=== PATIENT | female | born 1965 | race Caucasian/White ===

== ENCOUNTER 2024-08-31 20:04 | Emergency (ER) | payer MEDICAID, SELFPAY ==
--- NOTE | 2024-08-31 20:21 | XR_ITS ---
Examination: Knee, right , 3 views Technique: Knee AP, lateral, oblique 3 views Date and time of exam: August 31, 20242025 hrs. Indications: Patient fell today with injury to the knee, knee pain. Findings: Acute fracture lateral tibial plateau, significant depression of the lateral tibial plateau Significant osteopenia Extensive blood in the joint space Impression: Acute fracture proximal tibia with significant depression lateral tibial plateau
[2024-08-31 20:50] VITALS: BP 145/83; PULSE 78; RESP 18; TEMP 36.8; O2SAT 97; BMI 26.6
--- NOTE | 2024-08-31 21:06 | XR_ITS ---
Examination: CT right knee, without contrast. 2-D sagittal reconstructions. 2-D coronal reconstructions. 3-D reconstructions. Date and time of exam:August 23, 2024 2122 hrs. Indications: Patient fell today with injury to the knee, knee pain CTDI: vol (mGy):9.03 DLP: (mGycm):248 Technique: Multiple 1.25 mm axial sections of the right knee without intravenous contrast have been obtained. 2-D sagittal and coronal reconstructions have been obtained. 3-D reconstructions have been obtained. Low dose protocols were performed. One or more of the following dose reduction techniques were used; automated exposure control, adjustment of the mA and/or KV according to patient size, use of iterative reconstruction technique. Findings: Acute fracture proximal tibia with marked depression of the lateral tibial plateau, at least 8 mm Fracture extends to the lateral intercondylar spine Fibula intact Distal femur femoral condyles intact as well as patella Extensive blood in the joint space Impression: Acute comminuted fracture proximal tibia with marked depression of the lateral tibial plateau
--- NOTE | 2024-08-31 21:15 | PD.EDLOWEX ---
Lower Extremity Injury RME/HPI General Chief Complaint: Fall Stated Complaint: FALL WITH INJURY TO RIGHT KNEE Time Seen by Provider: 08/31/24 20:58 Arrival date/time: 08/31/24 20:04 58F with no significant PMH presents to ED with L knee pain after she fell at the gym. Patient denies hitting her head. Limitations: no limitations Related Data Previous Rx's ?Medication ?Instructions ?Recorded hydrocodone 5 mg-acetaminophen 325 1 tab PO BID PRN pain #10 tabs 08/31/24 mg tablet Allergies Allergy/AdvReac Type Severity Reaction Status Date / Time aspirin Allergy Verified 08/31/24 20:11 cephalexin Allergy Verified 08/31/24 20:11 Penicillins Allergy Verified 08/31/24 20:11 Review of Systems Review of Systems Systems Reviewed: All systems reviewed, normal except as documented Constitutional Constitutional: Reports system reviewed and no additional complaints, except as documented, Denies fever(s) and Denies headache(s) ENT Ears, Nose, Mouth, and Throat: Denies disequilibrium and Denies headache(s) Cardiovascular Cardiovascular: Reports system reviewed and no additional complaints, except as documented, Denies chest pain and Denies dyspnea Respiratory Respiratory: Reports system reviewed and no additional complaints, except as documented, Denies cough and Denies dyspnea Gastrointestinal Gastrointestinal: Reports system reviewed and no additional complaints, except as documented, Denies abdominal pain, Denies nausea and Denies vomiting Musculoskeletal Musculoskeletal: Reports as per HPI, Reports arthralgias and Reports joint swelling Neurologic Neurologic: Reports system reviewed and no additional complaints, except as documented, Denies confusion, Denies disequilibrium and Denies headache(s) Psychiatric Psychiatric: Denies confusion Past Medical History Social History SMOKING STATUS: Never smoker ED Exam General Limitations: Present no limitations General appearance: Present alert and in no apparent distress Head Head exam: Present atraumatic Eye Eye exam: Present normal appearance, PERRL and EOMI ENT ENT exam: Present normal exam, normal oropharynx and mucous membranes moist Neck Neck exam: Present normal inspection, full ROM and trachea midline Chest Chest inspection: Present normal inspection and symmetric chest wall rise Respiratory Respiratory exam: Present normal lung sounds bilaterally Cardiovascular Cardiovascular exam: Present regular rate, normal rhythm and normal heart sounds Abdominal Exam Abdominal exam: Present soft and normal bowel sounds Expanded Lower Extremity Exam Knee exam: Present tenderness (R) and swelling Back Exam Back exam: Present normal inspection and full ROM Neurological Exam Neurological exam: Present alert, oriented X3 and CN II-XII intact Psychiatric Psychiatric exam: Present normal affect and normal mood Skin Skin exam: Present warm, dry, intact and normal color Course Quality Measures none Orders Category Date Time Status Apply knee immobilizer NOW Care 08/31/24 22:21 Active Crutches .NOW Care 08/31/24 22:[address] knee RT wo con Stat Exams 08/31/24 21:06 Completed XR knee RT 3V Stat Exams 08/31/24 20:21 Completed CBC Stat Lab 08/31/24 21:17 Completed CMP [Comprehensive Metabolic Panel] Stat Lab 08/31/24 21:17 Completed INR [Prothrombin Time with INR] Stat Lab 08/31/24 21:17 Completed Lactate (Lactic Acid) Stat Lab 08/31/24 21:17 Completed PTT [Partial Thromboplastin Time] Stat Lab 08/31/24 21:17 Completed HYDROcodone*/APAP 5/325 [[place] 5/325] Med 08/31/24 22:35 Discontinued 1 tab PO X1 ONE Vital Signs Vital signs: Vital Signs Temperature 98.2 F 08/31/24 20:50 Pulse Rate 78 08/31/24 20:50 Respiratory Rate 18 08/31/24 20:50 Blood Pressure 145/83 H 08/31/24 20:50 Pulse Oximetry (%) 97 08/31/24 20:50 Oxygen Delivery Method Room Air 08/31/24 20:50 O2 at 97% on RA and WNLs Extremity Injury, Lower MDM Narrative MDM Narrative:: 58F with no significant PMH presents to ED with L knee pain after she fell at the gym. Patient denies hitting her head. Physical exam reveals R knee swelling and tenderness with reduced ROM. Possibly numbness in toes, but ROM currently intact. Distal pulses present. Patient cannot bear weight. Patient is afebrile, calm, and alert. XR and CT reveals proximal tibia fx with 8 mm depression of lateral plate. Labs unremarkable including normal lactate. Spoke to Dr. Simon, ortho at [facility], who states no emergent transfer needed given depression <1 cm. He will see patient on Tuesday for outpatient surgery. Meds, knee immobilizer, dianetic counselor, and crutches given. Patient data External records reviewed:: [facility] previous records Clinical information provided by:: patient Social determinants that could affect healthcare access:: none Patient has the following chronic illnesses:: none How is presenting disease/condition affected by chronic disease/condition?: no chronic disease Evaluation data The following diagnostics were reviewed and interpreted by me:: lab results and radiology exam(s) Lab and/or radiology exams considered but not ordered:: ordered Interpretation Summary: above Medications / Prescriptions Medications or Prescriptions considered but not ordered:: ordered Medication administrations:: Medication Administration History Discontinued Medications Hydrocodone Bitart/Acetaminophen (Hydrocodone/Apap 5/325 Tablet) 1 tab PO X1 ONE Stop: 08/31/24 22:36 above Consultations Consultation(s) initiated? (list below): Yes Diagnosis Extremity Injury, Lower Differential Diagnosis: ankle sprain and strain, acute internal derangement of knee, fracture of femur, fracture of hip and other (knee fx) Most likely diagnosis given after review of the tests above:: knee fx Admission Indicated Admission indicated?: not indicated Explain why admission is indicated or not indicated:: outpatient Admission Request Was there a request for admission?: No Disposition Plan Disposition Plan: Discharge Discharge Attestation Discharge Attestation: The patient and all family members were given an opportunity to ask questions and understood the discharge instructions. Discharge instructions specifically effects, indications for sooner follow up or return to the emergency department, and the expected course of current diagnosis. Patient condition: Stable Discharge Plan Plan Patient Disposition: HOME (Self Care) Disposition Comment: Stable Prescriptions/Referrals Prescriptions/Med Rec: New hydrocodone-acetaminophen 5-325 mg tablet 1 tab PO BID MDD 2 PRN (Reason: pain) Qty: 10 0RF Referrals: No Primary/Family,Physician [Primary Care Provider] - In 1 week Problem List Clinical Impression: Closed fracture of knee region Patient/Caregiver Discharge Instructions Education Materials: ED Fracture, Knee Additional Instructions: Please follow-up with PCP within 24-48 hours and return immediately if symptoms worsen. Dr. Simon, ortho surgeon at [facility], will see you next week. If worsening numbness/pain in lower leg, go to [facility] ED directly. Print Language: Khmer Stand Alone Forms: Patient Portal Info Letter PA/TIMBER SIZER Supervising Physician PA/TIMBER SIZER Supervising Physician: Dr. Mazariegos
[2024-08-31 21:34] LABS: Basophils % (Auto) 0 % (0-2.5); Eosinophils # (Auto) 0.1 Thou/mm3 (0.0-0.5); Eosinophils % (Auto) 1 % (0-10); Hematocrit 38.8 % (36.0-46.0); Hemoglobin 13.3 g/dL (12.0-16.0); Immature Granulocytes % (Auto) 0 % (0-0); Immature Granulocytes Auto 0.02 Thou/mm3 (0.00-0.00); Lymphocytes # (Auto) 0.9 Thou/mm3 (1.0-4.8); Lymphocytes % (Auto) 10 % (10-50); Mean Corpuscular HGB Conc 34.3 g/dl (31.0-37.0); Mean Corpuscular Hemoglobin 28.9 pg (25.0-35.0); Mean Corpuscular Volume 84 fL (80-100); Monocytes # (Auto) 0.6 Thou/mm3 (0.0-0.8); Monocytes % (Auto) 7 % (0-12); Neutrophils # (Auto) 7.4 Thou/mm3 (1.8-7.7); Neutrophils % (Auto) 82 % (37-80); Nucleated Red Blood Cell % 0 /100 WBC (0); Platelet Count 229 Thou/mm3 (140-440); RDW Standard Deviation 39.7 fL (36.4-46.3); White Blood Count 9.1 Thou/mm3 (3.6-11.0)
[2024-08-31 21:45] LABS: Alanine Aminotransferase 23 U/L (10-49); Albumin, Serum 4.7 gm/dL (3.5-5.0); Alkaline Phosphatase 77 U/L (46-116); Anion Gap 8 (7-16); Aspartate Amino Transferase 22 U/L (0-34); BUN/Creatinine Ratio 24 Ratio (12-20); Bilirubin,Total 0.5 mg/dL (0.3-1.2); Blood Urea Nitrogen 19 mg/dL (9-23); Calcium 9.6 mg/dL (8.3-10.6); Calcium (Corrected) 9.6 mg/dL (8.5-10.1); Carbon Dioxide 27.9 mMol/L (20.0-31.0); Chloride 100 mMol/L (98-107); Creatinine (Component) 0.8 mg/dL (0.6-1.3); Estimated Creatinine Clearance 75.6 mL/min (>60); Globulin 2.4 gm/dL (2.3-3.5); Glucose 108 mg/dL (74-106); Osmolality,Calculated 275 (275-295); Potassium 3.8 mMol/L (3.4-5.1); Sodium 136 mMol/L (136-145); Total Protein 7.1 gm/dL (5.7-8.2); eGFR > 60 See Note
[2024-08-31 21:47] LABS: Partial Thromboplastin Time 24.9 Seconds (22.0-36.0); Prothrombin Time 10.9 Seconds (9.0-12.2)
--- NOTE | 2024-08-31 22:05 | PC.NURSE ---
[facility] FAXED PAPERWORK FOR POSSIBLE ORTHO TRANSFER, SPOKE WITH [place]
[2024-08-31 22:10] VITALS: BP 152/78; PULSE 88; RESP 18; O2SAT 96
--- NOTE | 2024-08-31 22:22 | PC.NURSE ---
BRANDO LOVELACE AT [facility] TO FOLLOW UP WITH DR LOWRY ON Tuesday S [address] [place] [facility] 220
[2024-08-31] MEDS: HYDROcodone/APAP 5/325 TABLET 1 TAB PO (22:39)
[2024-08-31 22:41] VITALS: BP 152/78; PULSE 86; RESP 19; O2SAT 95
== END 2024-08-31 22:51 | disposition home or self-care (01) ==
PROVIDERS: Physician Assistant; Emergency Provider Emergency Medicine
DX: S82.101A Unspecified fracture of upper end of right tibia, initial encounter for closed fracture (principal); W19.XXXA Unspecified fall, initial encounter; Y93.89 Activity, other specified; Y92.39 Other specified sports and athletic area as the place of occurrence of the external cause
CPT/HCPCS: 36415; 73562; 73700; 80053; 83605; 85025; 85610; 85730; 99284; A9270

== ENCOUNTER 2024-11-22 13:34 | Outpatient (AMB) | payer MEDICAID, SELFPAY ==
[2024-11-22 13:54] VITALS: BP 159/84; PULSE 87; RESP 17; TEMP 36.9; O2SAT 97; BMI 27.8
--- NOTE | 2024-11-22 13:54 | ORTHONT_ITS ---
Vital signs 11/22/24 13:54 Height 1.65 m Height Method Stated Weight 75.75 kg Weight Measurement Method Standing Scale BMI 27.8 BP 159/84 H Blood Pressure Source Automatic Cuff Blood Pressure Location Right Upper Arm Position Sitting Respiration 17 Pulse 87 Pulse Source Monitor Temp 98.4 F Temp Source Temporal Artery Scan Pulse Oximetry (%) 97 Oxygen Delivery Method Room Air Med/Allergies Allergies & Medications Allergies aspirin Allergy (Verified 11/22/24 13:56) cephalexin Allergy (Verified 11/22/24 13:56) Penicillins Allergy (Verified 11/22/24 13:56) Medication Reconciliation hydrocodone 5 mg-acetaminophen 325 mg tablet 1 tab PO BID PRN pain #10 tabs 08/31/24 [Rx Confirmed 11/22/24] Exam Exam Patient is in no acute distress and is cooperative with the examination today. Breathing is nonlabored. Patient has a normal mood and affect. The patient has a gait that is nonantalgic Bilateral extremities were evaluated and demonstrates sensation intact to light touch. Palpable pedal pulses are present. No significant edema is present. Bilateral hips were examined. The patient has no pain with log roll of the hips. Internal rotation to 30 degrees and external rotation to 30 degrees is painless. Negative FADIR. Left knee was examined today. The left knee is in reasonable alignment. Range of motion from 0-120 degrees. Knee is stable to varus and valgus as well as AP translation with <5mm. Patient has a negative McMurrays. There is no pain with patellofemoral compression and no crepitus noted. The knee is nontender to palpation. The right knee was also examined. The right knee is in neutral alignment. Range of motion from 0-120 degrees. Knee is stable to varus and valgus as well as AP translation with <5mm. Patient has a negative McMurrays. There is no pain with patellofemoral compression and no crepitus noted. The knee is nontender to palpation diffusely. X-rays in the CT were personally reviewed by me. This is dated 08/31/2024 which is the injury films from 3 months ago. This demonstrates a posterior lateral tibial plateau fracture with depression and comminution Assessment and Plan Problem List (1) Tibial plateau fracture: Status: Acute Plan: Patient is a pleasant 58-year-old female with a 3-month old tibial plateau fracture that occurred after a direct impact injury. The fracture is likely already healed at this time. I would like to get x-rays. Unfortunately, she did not get surgery and there is significant depression of the lateral tibial plateau and it likely has healed according to the prior traumatologist. We discussed that we would probably try nonoperative treatment first. If she is does not do well we could possibly offer total knee replacement. She has only started bearing weight on it recently Office Procedures GNS Level of Care Nursing/Assessment Patient Status: Initial/New Patient Nursing Assessment/Reassesment: Medication Reconciliation and Update PMH in EMR Coordination of Care: Complex Care and Chronic Disease 1-5, Consent,records obtained, informed consent, Education Simp Pt/Fam, 1 Ins Authorization, Lab and Imaging orders and Results/Orders obtained New Patient Charge New Patient Point Assignment: [id number] New Patient Point Charge: PIPE INSTALLER Level 3 ([id number]) MA Intake Visit Data Collection New Patient or Established: Established Patient (seen at [facility] within 3 years) Reason for Visit:: RT TIBIA FRACTURE Seen by Clinical Staff ONLY (RN/MA): No Manager Data Warehousing Required: No PCP or OBGYN visit in last 3 months: Yes Hx Now: No Do You Feel Safe at Home: Yes Authorities Contacted: N/A Questionairres Past Medical History Past Medical History Have you ever been diagnosed with any of the following: Cardiology Problems Congestive Heart Failure: No Respiratory Problems Chronic Obstructive Pulmonary Disease (COPD): No Genital/Urinary Problems Renal Disease: No Reproductive Problems Pelvic Inflammatory Disease: No Musculoskeletal Problems Carpal Tunnel Syndrome: Yes Endocrine Problems Diabetes Mellitus Type 1: No Diabetes Mellitus Type 2: No Subjective Visit Visit for: new patient Immunization / Flu Flu Vaccine in the Last 12 Months: No Flu Vaccine Exclusion Criteria: Refused by Patient History of Present Illness Chief complaint: Right knee pain Idalia is a pleasant 58-year-old female with right knee pain in the right tibial plateau fracture that occurred 3 months ago. She saw prior traumatologist by the time she was able to see 1 if the fracture is already healed. We discussed with her total knee replacement is a reasonable option. She has not tried conservative treatment at all at this point. I would want to see how she does with physical therapy especially since she has started bearing weight recently Pain Pain level (0-10): 0 Ambulatory data Ambulatory device: other (specify) (1 CRUTCH) Treatments Number of previous injections: 0 Number of Physical Therapy sessions: 0 Improvement with NSAIDS: n/a Review of Systems Review of Systems: All systems negative unless otherwise noted in HPI.
--- NOTE | 2024-11-22 14:07 | XR_ITS ---
Examination: Right knee 4 views TECHNIQUE: AP oblique lateral axial right knee 4 views Date and time: November 22, 2024 at 1421 hours Comparison August 31, 2024 INDICATIONS: History fracture proximal tibia August 23, 2024 FINDINGS: Severe osteopenia Stable fracture with significant depression lateral tibial plateau No new fractures IMPRESSION: Stable fracture proximal tibia with significant depression lateral tibial plateau
== END 2024-11-22 14:11 | disposition home or self-care (01) ==
LOC: HODSRG 13:34
PROVIDERS: Supervising Provider Orthopaedic Surgery Adult Reconstructive Orthopaedic Surgery; Visit Provider Orthopaedic Surgery Adult Reconstructive Orthopaedic Surgery
DX: S82.141D Displaced bicondylar fracture of right tibia, subsequent encounter for closed fracture with routine healing (principal); X58.XXXD Exposure to other specified factors, subsequent encounter
CPT/HCPCS: 73564; 99203; G0463

== ENCOUNTER 2025-01-08 14:24 | Outpatient (AMB) | payer MEDICAID, SELFPAY ==
--- NOTE | 2025-01-08 14:44 | PD.ORTHCLVIS ---
Vital signs 01/08/25 14:50 Height 1.65 m Height Method Stated Weight 76.317 kg Weight Measurement Method Standing Scale BMI 28.0 BP 124/79 Blood Pressure Source Automatic Cuff Blood Pressure Location Right Upper Arm Position Sitting Respiration 16 Pulse 72 Pulse Source Monitor Temp 97.7 F Temp Source Temporal Artery Scan Pulse Oximetry (%) 94 L Oxygen Delivery Method Room Air Med/Allergies Allergies & Medications Allergies aspirin Allergy (Verified 01/08/25 14:51) cephalexin Allergy (Verified 01/08/25 14:51) Penicillins Allergy (Verified 01/08/25 14:51) Exam Exam Patient is in no acute distress and is cooperative with the examination today. Breathing is nonlabored. Patient has a normal mood and affect. The patient has a gait that is nonantalgic Bilateral extremities were evaluated and demonstrates sensation intact to light touch. Palpable pedal pulses are present. No significant edema is present. Bilateral hips were examined. The patient has no pain with log roll of the hips. Internal rotation to 30 degrees and external rotation to 30 degrees is painless. Negative FADIR. Left knee was examined today. The left knee is in reasonable alignment. Range of motion from 0-120 degrees. Knee is stable to varus and valgus as well as AP translation with <5mm. Patient has a negative McMurrays. There is no pain with patellofemoral compression and no crepitus noted. The knee is nontender to palpation. The right knee was also examined. The right knee is in neutral alignment. Range of motion from 0-120 degrees. Knee is stable to varus and valgus as well as AP translation with <5mm. Patient has a negative McMurrays. There is no pain with patellofemoral compression and no crepitus noted. The knee is nontender to palpation diffusely. X-rays in the CT were personally reviewed by me. This is dated 08/31/2024 which is the injury films from 3 months ago. This demonstrates a posterior lateral tibial plateau fracture with depression and comminution New x-rays demonstrate a depressed tibial plateau fracture site that appears to be well-healed at this time Assessment and Plan Problem List (1) Tibial plateau fracture: Status: Acute Plan: Patient is a pleasant 58-year-old female with a 3-month old tibial plateau fracture that occurred after a direct impact injury. The fracture has already healed at this time. She is doing well. She would like to continue with physical therapy Office Procedures GNS Level of Care Nursing/Assessment Patient Status: Established Patient Nursing Assessment/Reassesment: Medication Reconciliation, Update PMH in EMR and Vital Signs Coordination of Care: Complex Care and Chronic Disease 1-5, Education Complex Pt/Fam, Consent,records obtained, informed consent, Results/Orders obtained and Staff clarify orders Established Patient Charge Established Patient Point Assignment: 95 Established Patient Point Charge: EP Level 3 (80-115) MA Intake Visit Data Collection New Patient or Established: Established Patient (seen at [facility] within 3 years) Reason for Visit:: F/U XRAY RESULTS Seen by Clinical Staff ONLY (RN/MA): No Flask Maker Required: No PCP or OBGYN visit in last 3 months: Yes Hx Now: No Do You Feel Safe at Home: Yes Authorities Contacted: N/A Questionairres Past Medical History Past Medical History Have you ever been diagnosed with any of the following: Neurological Problems Cerebrovascular Accident (CVA): No Transient Ischemic Attacks (TIA): No Dementia: No Alzheimer's Disease: No Parkinson's Disease: No Brain Tumor: No Meningitis: No Seizures: No Epilepsy: No Multiple Sclerosis: No Cerebral Palsy: No Amyotrophic Lateral Sclerosis (ALS/Jayla Gehrig's): No Guillain-[place] Syndrome: No Spina Bifida: No Paralysis: No Peripheral Neuropathy: No Aguirre's Palsy: No Subdural Hematoma: No Migraine: No Head Trauma: No Spinal Cord Injury: No Traumatic Brain Injury: No Cardiology Problems Myocardial Infarction: No Cardiac Arrhythmia: No Atrial Fibrillation: No Angina: No Heart Murmur: No Coronary Artery Disease: No Atherosclerotic Heart Disease: No Peripheral Vascular Disease: No Hypercholesterolemia: No Aneurysm: No Congestive Heart Failure: No Congenital Heart Disease: No Valvular Heart Disease: No Rheumatic Fever: No Cardiomyopathy: No Edema: No Pericarditis: No Cellulitis: No Deep Vein Thrombosis: No Hypertension: No Hypotension: No Varicose Veins: No Respiratory Problems Chronic Obstructive Pulmonary Disease (COPD): No Asthma: No Bronchitis: No Emphysema: No Pneumonia: No Pulmonary Fibrosis: No Tuberculosis: No Pulmonary Embolism: No Pulmonary Edema: No Sleep Apnea: No CPAP Dependent: No Respiratory Aspiration: No Dyspnea: No Orthopnea: No Hx Cough: No Cough: No Wheezing: No Chest Deformities: No Smoking: No Smoking Cessation Counseling: No Smoking Exposure: No Tobacco Use: No Clubbing: No Exposure to Respiratory Irritants: No Intubation: No Stomache/Intestinal Problems Liver Cancer: No Hepatitis: No Cirrhosis: No Pancreatic Cancer: No Pancreatitis: No Celiac Disease: No Gall Bladder Disease: No Gastrointestinal Bleed: No Esophageal Varices: No Fitzpatrick's Esophagus: No Colitis: No Ulcerative Colitis: No Diverticulitis: No Diverticulosis: No Ulcer: No Colorectal Cancer: No Irritable Bowel: No Crohn's Disease: No Obstructive Bowel: No Hiatal Hernia: No Hemorrhoids: No Gastroesophageal Reflux Disease: No Polyps: No Obesity: No Genital/Urinary Problems Chronic Kidney Disease: No Renal Disease: No Kidney Stones: No Polycystic Kidney Disease: No Neurogenic Bladder: No Inguinal Hernia: No Dialysis: No Reproductive Problems Breast Cancer: No Endometriosis: No Fibroids: No Genital Herpes: No Gonorrhea: No Pelvic Inflammatory Disease: No Polycystic Ovarian Syndrome: No Previous Pregnancies: No Syphilis: No Uterine Prolapse: No Musculoskeletal Problems Muscular Dystrophy: No Myasthenia Gravis: No Marfan's Syndrome: No Bone Cancer: No Arthritis: No Rheumatoid Arthritis: No Osteoporosis: No Degenerative Disk Disease: No Gout: No Scoliosis: No Carpal Tunnel Syndrome: Yes Fibromyalgia: No Fractures: No Degenerative Joint Disease: No Osteomyelitis: No Poliovirus: No Head,Eye,Nose,Throat Problems Cataracts: No Glaucoma: No Blind: No Retinal Detachment: No Macular Degeneration: No Chronic Ear Infections: No Deafness: No Eye Prosthesis: No Endocrine Problems Diabetes Mellitus Type 1: No Diabetes Mellitus Type 2: No Hypoglycemia: No Carmencita's Syndrome: No [place]'s Disease: No Hyperthyroidism: No Hypothyroidism: No Thyroid Cancer: No Parathyroid Disease: No Pituitary Disease: No Systemic Lupus Erythematosus: No Syndrome of Inappropriate Antidiuretic Hormone: No Adrenal Disease: No Graves' Disease: No Blood Problems Anemia: No Leukemia: No Hemophilia: No Thalassemia: No Sickle Cell Disease: No Clotting Problems: No Psychologic Problems Schizophrenia: No Recreational Drug Use: No Bipolar Disorder: No Depression: No Anxiety: No Behavior Problems: No Self-Mutilation: No Attention Deficit Disorder: No Attention Deficit Hyperactivity Disorder: No Depression: No Post Traumatic Stress Disorder: No Eating Disorder: No Other Problems Hospitalization: No Autoimmune Disease: No Down Syndrome: No Autism: No Developmental Delay: No Cosmetic Surgery: No Shingles: No Falls: No Blood Transfusions: No Blood Transfusion Reaction: No Anesthesia Reactions: No Organ Transplant: No Chemotherapy: No Radiation Therapy: No Hyperbaric Therapy: No MRSA: No VRSA: No Vancomycin-Resistant Enterococci: No Human Immunodeficiency Virus (HIV): No Chicken Pox: No Measles: No Mumps: No Rubella ([place] Measles): No Pertussis: No Klebsiella Pneumoniae Carbapenemase Producing Bacteria: No Clostridium Difficile: No Hepatitis A: No Hepatitis B: No Hepatitis C: No Communicable Disease: No Cancer: No Cervical Cancer: No Lung Cancer: No Ovarian Cancer: No Surgical History Angioplasty: No Appendectomy: No Bariatric Surgery: No Breast Surgery: No Cancer Surgery: No Carotid Endarterectomy: No Cholecystectomy: No Colectomy: No Colostomy: No Coronary Artery Bypass Graft: No Valve Replacement: No Herniorrhaphy: No Total Hip Replacement: No Total Knee Replacement: No Hysterectomy: No Pacemaker: No Sinus Surgery: No Splenectomy: No TAHBSO-Total Abdominal Hysterectomy: No Thyroidectomy: No Ureter Stent: No Subjective Visit Visit for: follow up visit and x-rays Immunization / Flu Flu Vaccine in the Last 12 Months: No Flu Vaccine Exclusion Criteria: Refused by Patient and No Exclusion Criteria History of Present Illness Chief complaint: F/U XRAY RESULTS Idalia is a pleasant 58-year-old female with right knee pain in the right tibial plateau fracture that occurred 3 months ago. She saw prior traumatologist by the time she was able to see 1 if the fracture is already healed. We discussed with her total knee replacement is a reasonable option. She has not tried conservative treatment at all at this point. She would like to start physical therapy. She is walking without any assistive device at this point Pain Pain level (0-10): 1 Pain location: outside (lateral) and anterior Pain quality: sharp Pain timing: increases with activity Associated signs & symptoms: none Ambulatory data Ambulatory device: none Treatments Number of previous injections: 0 Improvement with previous injections: No Number of Physical Therapy sessions: 0 Improvement with PT: No Improvement with NSAIDS: n/a Review of Systems Review of Systems: All systems negative unless otherwise noted in HPI.
[2025-01-08 14:50] VITALS: BP 124/79; PULSE 72; RESP 16; TEMP 36.5; O2SAT 94; BMI 28.0
== END 2025-01-08 15:03 | disposition home or self-care (01) ==
LOC: HODSRG 14:24
PROVIDERS: Supervising Provider Orthopaedic Surgery Adult Reconstructive Orthopaedic Surgery; Visit Provider Orthopaedic Surgery Adult Reconstructive Orthopaedic Surgery
DX: S82.141D Displaced bicondylar fracture of right tibia, subsequent encounter for closed fracture with routine healing (principal); X58.XXXD Exposure to other specified factors, subsequent encounter
CPT/HCPCS: 99213; G0463

== ENCOUNTER 2025-03-01 13:30 | Outpatient (RCR) | payer MEDICAID, SELFPAY ==
--- NOTE | 2025-02-19 16:12 | PT.OIERPT ---
PT OP Initial Eval Patient Information Outpatient Physical Therapy Treatment Date: 02/19/25 Visit Reasons: Tibia fx Medical Diagnosis: Right Tibial Plateau Fracture Treatment Dx #1: Right Knee Pain Treatment Dx #2: Right Knee Weakness Start of Care: 02/19/25 Date of Onset: Aug 2024 Smoking Status Smoking Status: Never smoker Initial Assessment Subjective: Pt is a 59 y/o female reports of right tibial plateau fracture in Aug 2024 while working out at the gym. Pt was NWB for 3 months due to specialist's order. According to patient if her knee doesn't feel better she will be possibly pending a knee replacement. Pt has limitaiton with walking, standing, chores, balance, uneven surfaces, working out, and performing recreational activities. Pt's average knee pain is 5/10 and swells with all activities. Objective: Right Knee AROM: all motions are WFL with end range pain into flexion Right Knee MMTs: grossly 4-/5 Right Hip MMTs: grossly 3+/5 Active SLR: 80 deg SLS: 3 sec with femoral IR Assessment: Pt demonstrate right knee weakness with pain s/p fracture leading to difficulty with ADLs. Pt will benefit from physical therapy to increase mobility, strength, and work on stability. Short Term and Senior Care Goals 1) Decrease knee pain to 2/10 in 6 wks to be able to stand more than 30 mins 2) Increase right knee MMTs grossly 4/5 in 6 wks to be able to perform squatting activities 3) Increase right hip MMTs grossly to 4-/5 in 6 wks to be able to perform recreational activities 4) Increase SLS to 15 sec in 6 wks to be able to perform self care activities 5) Indep with HEP Treatment Plan 1) Manual Therapy 2) Therapeutic Activities 3) Therapeutic Exercises 4) Modalities (ice, heat) 5) Balance Training 6) Gait Training Frequency and Duration: 2 x wk for 6 wks Certification Dates: 02/19/25 to 05/22/25 Procedure Charges OP PT Eval Mod Complex 30 minutes: Yes
--- NOTE | 2025-02-22 13:59 | PT.ODAYNRPT ---
PT Outpatient Daily Note OP Daily Note Outpatient Physical Therapy Treatment Date: 02/22/25 Visit Reasons: Tibia fx Subjective: Pt still has pain with prolonged activities. Objective: Please see flow chart for list of ther ex performed Assessment: tolerate exercises with minimal pain Plan: Continue with PT Length of Time (minutes) of Treatment: 30 Minutes Procedure Charges Therapeutic Exercise 30 minutes: Yes
--- NOTE | 2025-02-27 14:35 | PT.ODAYNRPT ---
PT Outpatient Daily Note OP Daily Note Outpatient Physical Therapy Treatment Date: 02/27/25 Visit Reasons: Tibia fx Subjective: Pt reports R knee was sore after last session but feels like she had a good PT session. Objective: Please see flow sheet for ther ex list. Assessment: Added TG squat exercise, pt completed with minimal medial knee collapse but self corrects after a few reps. Plan: Continue with POC. Length of Time (minutes) of Treatment: 30 Minutes Procedure Charges Therapeutic Exercise 30 minutes: Yes
--- NOTE | 2025-03-01 14:32 | PT.ODAYNRPT ---
PT Outpatient Daily Note OP Daily Note Outpatient Physical Therapy Treatment Date: 03/01/25 Visit Reasons: Tibia fx Subjective: Pt reports knee is doing better. Objective: Please see flow sheet for ther ex list. Assessment: Progressing interventions withing pt tolerance and instructed updated HEP, pt agreed to perorm for home. (HEP SLR, standing hip abduction, standing HS curl and heel raises. Plan: Continue with pOC. Length of Time (minutes) of Treatment: 30 Minutes Procedure Charges Therapeutic Exercise 30 minutes: Yes
== END 2025-03-03 23:59 | disposition home or self-care (01) ==
LOC: CPTX 13:30
PROVIDERS: PCP Orthopaedic Surgery Adult Reconstructive Orthopaedic Surgery; Referring Provider Orthopaedic Surgery Adult Reconstructive Orthopaedic Surgery; Visit Provider Orthopaedic Surgery Adult Reconstructive Orthopaedic Surgery
DX: M25.561 Pain in right knee (principal); R53.1 Weakness; R26.2 Difficulty in walking, not elsewhere classified; R26.89 Other abnormalities of gait and mobility; S82.141D Displaced bicondylar fracture of right tibia, subsequent encounter for closed fracture with routine healing; X58.XXXD Exposure to other specified factors, subsequent encounter
CPT/HCPCS: 97110; 97162

== ENCOUNTER 2025-03-29 13:30 | Outpatient (RCR) | payer MEDICAID, SELFPAY ==
--- NOTE | 2025-03-20 15:00 | PT.ODAYNRPT ---
PT Outpatient Daily Note OP Daily Note Outpatient Physical Therapy Treatment Date: 03/20/25 Visit Reasons: tibia fx Subjective: Pt's knee is much better. Pt has been able to bear more weight with walking. Pt still notice knee stiffness with prolonged sitting. Objective: Please see flow chart for list of ther ex perfomed Assessment: added ankle weight 1# to knee exercises with good tolerance. Pt demonstrate improved WB with gait Plan: Continue with PT Length of Time (minutes) of Treatment: 30 Minutes Procedure Charges Therapeutic Exercise 30 minutes: Yes
--- NOTE | 2025-03-22 15:31 | PT.ODAYNRPT ---
PT Outpatient Daily Note OP Daily Note Outpatient Physical Therapy Treatment Date: 03/22/25 Visit Reasons: tibia fx Subjective: Pt's knee was a little sore after last session. Pt still doesn't trust her knee completely with stairs Objective: Please see flow chart for list of ther ex performed Assessment: cues to decrease vaulting with 4 step up exercises and to initiate quad with step up motion. Added monster walk cues to keep toes forward to properly recruit glutes Plan: Continue with PT Length of Time (minutes) of Treatment: 30 Minutes Procedure Charges Therapeutic Exercise 30 minutes: Yes
--- NOTE | 2025-03-27 13:57 | PT.ODAYNRPT ---
PT Outpatient Daily Note OP Daily Note Outpatient Physical Therapy Treatment Date: 03/27/25 Visit Reasons: tibia fx Subjective: Pt was moving a lot of boxes over the weekend and felt sore shortly afterward. Today patient feels much better and knee is not as sore. Objective: Please see flow chart for list of ther ex performed Assessment: added RTB to monster and side step; patient had difficulty completing exercises due to glute fatigue. Pt was able to complete instructed reps with good form Plan: Continue with PT Length of Time (minutes) of Treatment: 30 Minutes Procedure Charges Therapeutic Exercise 30 minutes: Yes
--- NOTE | 2025-03-29 15:26 | PT.ODAYNRPT ---
PT Outpatient Daily Note OP Daily Note Outpatient Physical Therapy Treatment Date: 03/29/25 Visit Reasons: tibia fx Subjective: Pt's knee feels good. Pt does not have any concerns. Objective: Please see flow chart for list of ther ex performed Assessment: tolerate exercises with minimal pain Plan: Continue with PT Length of Time (minutes) of Treatment: 30 Minutes Procedure Charges Therapeutic Exercise 30 minutes: Yes
== END 2025-04-02 23:59 | disposition home or self-care (01) ==
LOC: CPTX 13:30
PROVIDERS: PCP Orthopaedic Surgery Adult Reconstructive Orthopaedic Surgery; Referring Provider Orthopaedic Surgery Adult Reconstructive Orthopaedic Surgery; Visit Provider Orthopaedic Surgery Adult Reconstructive Orthopaedic Surgery
DX: M25.561 Pain in right knee (principal); R53.1 Weakness; R26.2 Difficulty in walking, not elsewhere classified; R26.89 Other abnormalities of gait and mobility; S82.141D Displaced bicondylar fracture of right tibia, subsequent encounter for closed fracture with routine healing; X58.XXXD Exposure to other specified factors, subsequent encounter
CPT/HCPCS: 97110

== ENCOUNTER 2025-05-01 14:00 | Outpatient (RCR) | payer MEDICAID, SELFPAY ==
--- NOTE | 2025-04-12 14:40 | PT.ODAYNRPT ---
PT Outpatient Daily Note OP Daily Note Outpatient Physical Therapy Treatment Date: 04/12/25 Visit Reasons: TIBIA FRACTURE Subjective: Pt's knee is better. Pt mentioned she still has limitation with deep squat. Objective: Please see flow chart for list of ther ex performed Assessment: attempted wall squat, however, unable to complete due to knee pain and modified back to SL TG squat with better tolerance Plan: Continue with PT Length of Time (minutes) of Treatment: 30 Minutes Procedure Charges Therapeutic Exercise 30 minutes: Yes
--- NOTE | 2025-04-19 14:58 | PT.ODAYNRPT ---
PT Outpatient Daily Note OP Daily Note Outpatient Physical Therapy Treatment Date: 04/19/25 Visit Reasons: TIBIA FRACTURE Subjective: Pt reports [place] and had a hard time walking in the sand. Objective: Please see flow sheet for ther ex list. Assessment: Worked on squatting knee mechanics, pt demonstrates excessive medial knee collapse and favors L LE when squatting. Used mirror during squats for feedback decrease in medial knee collapse with squats using mirror. Plan: Continue with poC. Length of Time (minutes) of Treatment: 30 Minutes Procedure Charges Therapeutic Exercise 30 minutes: Yes
--- NOTE | 2025-05-01 14:19 | PT.ODAYNRPT ---
PT Outpatient Daily Note OP Daily Note Outpatient Physical Therapy Treatment Date: 05/01/25 Visit Reasons: TIBIA FRACTURE Subjective: No new complaints. Objective: Please see flow sheet for ther ex list. Assessment: Progressing interventions as tolerated. Plan: Pt has one visit left, assess for note. Length of Time (minutes) of Treatment: 30 Minutes Procedure Charges Therapeutic Exercise 30 minutes: Yes
--- NOTE | 2025-05-08 14:46 | PT.ODS1RPT ---
PT OP Progress/Discharge Note Date of Service: 05/08/25 Progress Note/DC Note Progress Note/Discharge Note: DC Note Patient Information Visit Reasons: TIBIA FRACTURE Service Discharge Date: 05/08/25 Status Assessment: Pt has been seen for 11 visits (eval + 10 visits). Pt last treated on 05/01/25. Pt came in 05/08/25 to cx all pending PT appt. Pt feels fine and will be bringing her client into therapy. Pt did not meet set goals in therapy; thank you for your referrals.
== END 2025-05-03 23:59 | disposition home or self-care (01) ==
LOC: CPTX 14:00
PROVIDERS: PCP Orthopaedic Surgery Adult Reconstructive Orthopaedic Surgery; Referring Provider Orthopaedic Surgery Adult Reconstructive Orthopaedic Surgery; Visit Provider Orthopaedic Surgery Adult Reconstructive Orthopaedic Surgery
DX: M25.561 Pain in right knee (principal); R53.1 Weakness; S82.141D Displaced bicondylar fracture of right tibia, subsequent encounter for closed fracture with routine healing; X58.XXXD Exposure to other specified factors, subsequent encounter
CPT/HCPCS: 97110